=== PATIENT | male | born 1950 | race Caucasian/White ===

== ENCOUNTER 2017-07-24 06:52 | Emergency (ER) | payer OTHER ==
[~2017-07-24] VITALS: Ht 170.2 cm; Wt 97.1 kg
[~2017-07-24 06:52] MED LIST: ALLERCLEAR10 MG PO; CETI5 PO; Combigan Eye Dro5 ML BOTHEYES; DOCOSAHEXAENOIC ACID PO; DUTA.5 PO; ENOX40I SC; FLAX PO; GLUC500 PO; HYDACE7.5 PO; HYDMOR2 PO; Hair, Skin & N1 EACH PO; Ibuprofen Ib200 MG PO; LOSARTAN POTASSIUM PO; LUMIGAN2.5 ML BOTHEYES; LYSINE PO; Norco 5-325 Ta1 EACH PO; OMEPRAZOLE MAGN20 MG PO; PROM12.5S PO; Percocet 5-3251 EACH PO; TIMO10T; VALA500 PO; [UNRECOGNIZED DRUG - OTHER] PO
[2017-07-24] MEDS ORDERED: Dorzolamide-Tim10 ML (07:26)
[2017-07-24] MEDS ORDERED: HYDCHL12.5 (07:27)
== END 2017-07-24 07:47 | disposition home or self-care (01) ==
LOC: ER 06:52
DX: S40.862A Insect bite (nonvenomous) of left upper arm, initial encounter (principal); I10 Essential (primary) hypertension; Z88.0 Allergy status to penicillin; Z88.2 Allergy status to sulfonamides; Z88.1 Allergy status to other antibiotic agents; Z91.018 Allergy to other foods; Z91.048 Other nonmedicinal substance allergy status; Z88.5 Allergy status to narcotic agent; Z79.899 Other long term (current) drug therapy; W57.XXXA Bitten or stung by nonvenomous insect and other nonvenomous arthropods, initial encounter
CPT/HCPCS: 99282

== ENCOUNTER 2019-11-06 09:31 | Day surgery (SDC) | payer OTHER ==
[~2019-11-06] VITALS: Ht 170.2 cm; Wt 94.0 kg
[~2019-11-06 09:31] MED LIST changes: +Dorzolamide-Tim10 ML; +FLAXSEED OIL1000 M1 PO; +HYDCHL12.5; +HYDROCHLOROTH12.5 MG PO; +L-Lysine500 M1 PO; +LOSARTAN POTAS100 M1 PO; +MULTIPLE VITAM1 EACH PO; +Mupirocin22 GM; +OMEGA ESSENTIA240 ML PO; +OMEP20ER PO; +TIMO.25OPS BOTHEYES; +VALA500; +ZYRTEC10 M2 PO
== END 2019-11-06 11:45 | disposition home or self-care (01) ==
LOC: ORSCSDS 09:31
PROVIDERS: Student in an Organized Health Care Education/Training Program
PROC: 0DB48ZX Excision of Esophagogastric Junction, Via Natural or Artificial Opening Endoscopic, Diagnostic (ICD-10-PCS; principal; 2019-11-06 10:45)
PROC: 0DBH8ZX Excision of Cecum, Via Natural or Artificial Opening Endoscopic, Diagnostic (ICD-10-PCS; principal; 2019-11-06 10:45)
PROC: 0DBL8ZX Excision of Transverse Colon, Via Natural or Artificial Opening Endoscopic, Diagnostic (ICD-10-PCS; principal; 2019-11-06 10:45)
PROC: 0DBN8ZX Excision of Sigmoid Colon, Via Natural or Artificial Opening Endoscopic, Diagnostic (ICD-10-PCS; principal; 2019-11-06 10:45)
PROC: 0DBK8ZX Excision of Ascending Colon, Via Natural or Artificial Opening Endoscopic, Diagnostic (ICD-10-PCS; principal; 2019-11-06 10:45)
DX: Z12.11 Encounter for screening for malignant neoplasm of colon (principal); K21.9 Gastro-esophageal reflux disease without esophagitis; K22.70 Barrett's esophagus without dysplasia; D12.0 Benign neoplasm of cecum; D12.2 Benign neoplasm of ascending colon; D12.3 Benign neoplasm of transverse colon; D12.5 Benign neoplasm of sigmoid colon; K57.30 Diverticulosis of large intestine without perforation or abscess without bleeding; K64.8 Other hemorrhoids; K44.9 Diaphragmatic hernia without obstruction or gangrene; I10 Essential (primary) hypertension; J45.909 Unspecified asthma, uncomplicated; Z79.899 Other long term (current) drug therapy
CPT/HCPCS: 88305; J2704; J7120

== ENCOUNTER → 2021-06-26 | Outpatient (CLI) | payer OTHER | END | disposition home or self-care (01) | LOC: LAB 11:30 → PLD 11:30 → LAB SHORT 11:30 | DX: C44.612 Basal cell carcinoma of skin of right upper limb, including shoulder (principal) | CPT/HCPCS: 88305 ==

== ENCOUNTER → 2021-07-24 | Outpatient (CLI) | payer OTHER | END | disposition home or self-care (01) | LOC: LAB SHORT 15:06 → PLD 15:06 | DX: L57.0 Actinic keratosis (principal); L81.4 Other melanin hyperpigmentation; L82.1 Other seborrheic keratosis | CPT/HCPCS: 88305 ==